=== PATIENT | male | born 1980 | race Caucasian/White ===

== ENCOUNTER 2020-02-19 17:22 | Emergency (ER) | payer SELFPAY ==
[~2020-02-19] VITALS: Ht 162.6 cm; Wt 86.2 kg
--- NOTE | 2020-02-19 17:22 | NUR ---
PT SHY ALS. WAITING ON BED.
--- NOTE | 2020-02-19 17:50 | NUR ---
SUAD BEGUM ALS TO ER BED 02
[2020-02-19 18:15] VITALS: BP 130/90
--- NOTE | 2020-02-19 18:22 | NUR ---
PT BIB AMBULANCE DUE TO PALPITATIONS AND DIFFICULTY BREATHING UPON WAKING UP THIS MORNING. PT TESTED POSITIVE FOR SHELDON ON 02/05/20. ADMITTED TO [facility] FOR 4 DAYS. UPON ASSESSMENT, PT AFEBRILE, TACHYCARDIC AND TACHYPNEIC. PT WITH CLEAR BREATH SOUNDS. ERMD MADE AWARE. PMH: NONE
[2020-02-19 19:05] LABS: BASOPHILS # (AUTO) 0.1 K/uL (0.00-0.22); BASOPHILS % (AUTO) 0.5 % (0.0-2.0); EOSINOPHILS % (AUTO) 0.4 % (0.0-4.0); HEMATOCRIT 43.7 % (36-52); HEMOGLOBIN 14.7 g/dL (12.0-18.0); LYMPHOCYTES # (AUTO) 1.4 K/uL (2.0-11.5); LYMPHOCYTES % (AUTO) 12.9 % (20.5-51.1); MEAN CORPUSCULAR HEMOGLOBIN 31 pg (27-31); MEAN CORPUSCULAR HGB CONC 34 g/dL (33-37); MEAN CORPUSCULAR VOLUME 92.5 fL (80-94); MONOCYTES # (AUTO) 0.8 K/uL (0.8-1.0); MONOCYTES % (AUTO) 7.6 % (1.7-9.3); NEUTROPHILS # (AUTO) 8.3 K/uL (1.8-7.7); NEUTROPHILS % (AUTO) 78.6 % (42.2-75.2); PLATELET COUNT (AUTO) 351 K/uL (140-450); RED BLOOD CELL COUNT(AUTO) 4.72 MIL/uL (4.20-6.10); RED CELL DISTRIBUTION WIDTH 13.4 % (11.6-13.7); WHITE BLOOD COUNT (AUTO) 10.6 K/uL (4.8-10.8)
--- NOTE | 2020-02-19 19:14 | NUR ---
REPORT GIVEN TO KAPIL LEMUS. ALL CARE TRANSFERRED AT THIS TIME.
[2020-02-19 19:24] LABS: ALBUMIN 3.3 g/dL (3.4-5.0); ANION GAP 16.4 (8-16); CARBON DIOXIDE 24.1 mmol/L (21-32); POTASSIUM 3.5 mmol/L (3.5-5.1); TOTAL BILIRUBIN 0.3 mg/dL (0.0-1.0)
[2020-02-19 19:28] LABS: MAGNESIUM 1.9 mg/dL (1.8-2.4)
--- NOTE | 2020-02-19 19:36 | NUR ---
PT RESTING QUIETLY IN BED, VSS, R/R EQUAL AND UNLABORED. SIDE RAIL X2, BED IN LOW POSITION, WILL CONTINUE TO MONITOR.
[2020-02-19] MEDS ORDERED: POTASSIUM CHLORIDE 10 MEQ TABER PO ONE ×2 (20:35→21:42)
--- NOTE | 2020-02-19 20:40 | NUR ---
PT TALKING ON PHONE, VSS, R/R EQUAL, AND UNLABORED. RESTING ON BED, SIDE RAIL X1, BED IN LOW POSITION, WILL CONTINUE TO MONITOR.
--- NOTE | 2020-02-19 21:37 | NUR ---
PT ADMINISTERED 2 POTASSIUM 10MeQ PO. VSS, R/R EQUAL, AND UNLABORED. SIDE RAIL, X1 BED IN LOW POSITION.
[2020-02-19 22:01] VITALS: BP 130/90
--- NOTE | 2020-02-19 22:01 | NUR ---
Patient discharged with v/s stable. Written and verbal after care instructions given and explained. Patient alert, oriented and verbalized understanding of instructions. Ambulatory with steady gait. All questions addressed prior to discharge. ID band removed. Patient advised to follow up with PMD. Rx of POTASSIUM given. Patient educated on indication of medication including possible reaction and side effects. Opportunity to ask questions provided and answered.
== END 2020-02-19 22:01 | disposition home or self-care (01) ==
LOC: MED 17:22
DX: R00.2 Palpitations (principal); R53.1 Weakness; M79.601 Pain in right arm; M79.602 Pain in left arm
CPT/HCPCS: 36415; 71045; 80053; 81002; 83690; 83735; 83880; 84484; 85025; 93005; 99285; Q0092